=== PATIENT | female | born 1985 | race African-American/Black ===

== ENCOUNTER 2017-07-19 23:18 | Emergency (ER) | payer OTHER ==
[2017-07-19 23:46] LABS: URINE HCG POC HCG NEGATIVE (Negative)
[2017-07-20 00:23] LABS: BILIRUBIN,URINE SMALL (NEG); CLARITY,URINE CLOUDY; COLOR,URINE AMBER; GLUCOSE,URINE NEGATIVE (NEG); NITRITE,URINE NEGATIVE (NEG); PROTEIN,URINE NEGATIVE (NEG-TRACE)
[2017-07-20 00:32] LABS: BACTERIA,URINE FEW /HPF (0-FEW); RBC,URINE 0 /HPF (0-2); SQUAMOUS EPITHELIAL CELL,UR MOD /LPF; WBC,URINE RARE /HPF (0-4)
[2017-07-20 00:33] LABS: ADD MAN DIFF? NO
[2017-07-20] MEDS: KETOROLAC 15 MG/ML VIAL. IV (00:33)
[2017-07-20 00:37] LABS: BASO # 0.1 x10^3/uL (0.0-0.2); BASO % 1 % (0-3); EOS # 0.1 x10^3/uL (0.0-0.7); EOS % 2 % (0-3); HEMATOCRIT 36.3 % (36.0-47.0); HEMOGLOBIN 12.4 g/dL (12.0-15.5); LYMPH # 3.2 x10^3/uL (1.0-4.8); LYMPH % 40 % (24-48); MEAN CORPUSCULAR HEMOGLOBIN 31 pg (25-35); MEAN CORPUSCULAR HGB CONC 34 g/dL (31-37); MEAN CORPUSCULAR VOLUME 90 fL (79-100); MONO # 0.5 x10^3/uL (0.0-1.1); MONO % 7 % (0-9); NEUT # 4.1 x10^3uL (1.8-7.7); NEUT % 51 % (31-73); PLATELET COUNT 365 x10^3/uL (140-400); RED BLOOD COUNT 4.03 x10^6/uL (3.50-5.40); RED CELL DISTRIBUTION WIDTH 13.5 % (11.5-14.5)
[2017-07-20 00:46] LABS: ANION GAP 10 (6-14); BLOOD UREA NITROGEN 9 mg/dL (7-20); BUN/CREATININE RATIO 13 (6-20); CALCIUM 8.5 mg/dL (8.5-10.1); CARBON DIOXIDE 26 mmol/L (21-32); CHLORIDE 104 mmol/L (98-107); CREATININE 0.7 mg/dL (0.6-1.0); GFR 118.1; GLUCOSE 93 mg/dL (70-99); POTASSIUM 3.4 mmol/L (3.5-5.1); SODIUM 140 mmol/L (136-145)
[2017-07-20 00:52] LABS: ALBUMIN 3.5 g/dL (3.4-5.0); ALK PHOS 50 U/L (46-116); ALT (SGPT) 18 U/L (14-59); AST (SGOT) 15 U/L (15-37); LIPASE 72 U/L (73-393); TOTAL BILIRUBIN 0.4 mg/dL (0.2-1.0); TOTAL PROTEIN 7.1 g/dL (6.4-8.2)
== END 2017-07-20 02:37 | disposition home or self-care (01) ==
LOC: ER 07-20 02:37
DX: R10.9 Unspecified abdominal pain (principal); M54.89 Other dorsalgia; N32.89 Other specified disorders of bladder
CPT/HCPCS: 36415; 74176; 80053; 81001; 81025; 83690; 85025; 96374; 99285-25; J1885

== ENCOUNTER 2019-06-24 14:12 | Emergency (ER) | payer SELFPAY ==
[~2019-06-24] VITALS: Ht 162.6 cm; Wt 60.5 kg
[~2019-06-24 14:12] MED LIST: CIPR500T94 PO; HYDR-3164 PO; ONDA4TAB7 PO
[2019-06-24 14:36] VITALS: BP 130/88
[2019-06-24 14:58] LABS: BARBITURATES NEG (NEG); BENZODIAZEPINES NEG (NEG); CANNABINOIDS POS (NEG); COCAINE NEG (NEG); METHADONE NEG (NEG); OPIATES NEG (NEG); PHENCYCLIDINE NEG (NEG)
[2019-06-24 15:02] LABS: AMPHETAMINE/METHAMPHETAMINE NEG (NEG)
[2019-06-24] MEDS ORDERED: HYDROcodone/APAP 5/325MG 1 TAB TABLET PO ONE (15:15)
[2019-06-24 15:18] LABS: BILIRUBIN,URINE NEGATIVE (NEG); CLARITY,URINE TURBID; COLOR,URINE YELLOW; NITRITE,URINE NEGATIVE (NEG); PROTEIN,URINE NEGATIVE (NEG-TRACE)
[2019-06-24 15:19] LABS: AMORPHOUS SEDIMENT,UR PRESENT /HPF; BACTERIA,URINE FEW /HPF (0-FEW); RBC,URINE 0 /HPF (0-2); SQUAMOUS EPITHELIAL CELL,UR MOD /LPF; TRICHOMONAS,URINE PRESENT
--- NOTE | 2019-06-24 15:38 | RAD ---
EXAM: Transabdominal and transvaginal pelvic sonogram. HISTORY: Pain. TECHNIQUE: Transabdominal and transvaginal sonographic imaging of the pelvis was performed. COMPARISON: CT dated 07/20/2017. FINDINGS: The uterus measures 7.3 x 4.8 x 4.0 cm. The endometrial stripe measures 5.6 mm in thickness. The right ovary measures 3.7 x 2.2 x 1.9 cm. The left ovary measures 4.8 x 2.8 x 2.7 cm and contains a complex cyst or endometrioma without internal blood flow measuring 4.3 cm in maximum dimension. There is no pelvic free fluid. There is normal blood flow within both ovaries. IMPRESSION: 1. 4.3 cm complex left ovarian cyst or endometrioma. There is normal blood flow within both ovaries. 2. Unremarkable uterus and endometrial stripe. Electronically signed by: Adore Del Real MD (06/24/2019 3:35 PM) [facility]
[2019-06-24 15:48] LABS: BASO # 0.1 x10^3/uL (0.0-0.2); BASO % 1 % (0-3); EOS # 0.1 x10^3/uL (0.0-0.7); EOS % 1 % (0-3); HEMATOCRIT 39.8 % (36.0-47.0); HEMOGLOBIN 13.2 g/dL (12.0-15.5); LYMPH # 3.7 x10^3/uL (1.0-4.8); LYMPH % 32 % (24-48); MEAN CORPUSCULAR HEMOGLOBIN 29 pg (25-35); MEAN CORPUSCULAR HGB CONC 33 g/dL (31-37); MEAN CORPUSCULAR VOLUME 88 fL (79-100); MONO # 0.8 x10^3/uL (0.0-1.1); MONO % 7 % (0-9); NEUT % 60 % (31-73); PLATELET COUNT 470 x10^3/uL (140-400); RED BLOOD COUNT 4.54 x10^6/uL (3.50-5.40); RED CELL DISTRIBUTION WIDTH 14.1 % (11.5-14.5); WHITE BLOOD COUNT 11.8 x10^3/uL (4.0-11.0)
[2019-06-24 16:00] LABS: CALCIUM 9.3 mg/dL (8.5-10.1); CREATININE 0.8 mg/dL (0.6-1.0); POTASSIUM 3.5 mmol/L (3.5-5.1)
[2019-06-24 16:06] LABS: ALBUMIN 3.5 g/dL (3.4-5.0); ALBUMIN/GLOBULIN RATIO 0.8 (1.0-1.7); TOTAL BILIRUBIN 0.3 mg/dL (0.2-1.0); TOTAL PROTEIN 8.1 g/dL (6.4-8.2)
[2019-06-24] MEDS ORDERED: NAPROXEN 500 MG TABLET PO STA (16:18)
[2019-06-24] MEDS ORDERED: cefTRIAXone IM 250 MG VIAL IM ONE (16:30)
[2019-06-24] MEDS ORDERED: AZITHROMYCIN 250 MG TABLET. PO ONE (16:30)
[2019-06-24] MEDS ORDERED: ONDANSETRON ODT 4 MG TAB.RAPDIS. PO ONE (16:30)
[2019-06-24] MEDS ORDERED: metroNIDAZOLE 500 MG TABLET PO ONE (16:30)
[2019-06-24] MEDS ORDERED: NAPR-514 PO (16:42)
[2019-06-24] MEDS ORDERED: CEPH500T PO (16:42)
[2019-06-24] MEDS ORDERED: HYDR-3164 PO (16:42)
[2019-06-24] MEDS ORDERED: METR500T PO (16:42)
--- NOTE | 2019-06-24 16:43 | PHYS DOC ---
Past Medical History Past Medical History: No Pertinent History Past Surgical History: No Surgical History Smoking Status: Never Smoker Alcohol Use: Occasionally Drug Use: Marijuana Adult General Chief Complaint Chief Complaint: ABDOMINAL PAIN HPI HPI Patient is a 33 year old female with no significant medical history who presents to the ED today complaining of bilateral pelvic pain rated at 10 out of 10 described as sharp and intermittent that has been going on for 1 week. Patient is also complaining of nausea and vomiting due to the pain. Denies any fever. Denies any chance she is . Denies any concerns for STDs. Review of Systems Review of Systems Constitutional: Denies fever or chills [] Eyes: Denies change in visual acuity, redness, or eye pain [] HENT: Denies nasal congestion or sore throat [] Respiratory: Denies cough or shortness of breath [] Cardiovascular: No additional information not addressed in HPI [] GI: Reports abdominal pain with nausea and vomiting, denies bloody stools or diarrhea [] : Denies dysuria or hematuria [] Musculoskeletal: Denies back pain or joint pain [] Integument: Denies rash or skin lesions [] Neurologic: Denies headache, focal weakness or sensory changes [] All other systems were reviewed and found to be within normal limits, except as documented in this note. Current Medications Current Medications Current Medications Medications (Trade) Dose Ordered Sig/Wilma Start Time Stop Time Status Last Admin Dose Admin Acetaminophen/ Hydrocodone Bitart (Lortab 5/325) 1 tab 1X ONCE 06/24/19 15:15 06/24/19 15:16 DC 06/24/19 15:15 1 TAB Azithromycin (Zithromax) 1,000 mg 1X ONCE 06/24/19 16:30 06/24/19 16:31 DC 06/24/19 16:38 1,000 MG Ceftriaxone Sodium (Rocephin Im) 250 mg 1X ONCE 06/24/19 16:30 06/24/19 16:31 DC 06/24/19 16:39 250 MG Metronidazole (Flagyl) 2,000 mg 1X ONCE 06/24/19 16:30 06/24/19 16:31 DC 06/24/19 16:39 2,000 MG Naproxen (Naprosyn) 500 mg 1X STAT 06/24/19 16:18 06/24/19 16:23 DC 06/24/19 16:39 500 MG Ondansetron HCl (Zofran Odt) 4 mg 1X ONCE 06/24/19 16:30 06/24/19 16:31 DC 06/24/19 16:38 4 MG Allergies Allergies Allergies Coded Allergies Type Severity Reaction Last Updated Verified No Known Drug Allergies 10/17/13 No Physical Exam Physical Exam Constitutional: Well developed, well nourished, no acute distress, non-toxic appearance. [] HENT: Normocephalic, atraumatic, bilateral external ears normal, oropharynx moist, no oral exudates, nose normal. [] Eyes: PERRLA, EOMI, conjunctiva normal, no discharge. [] Neck: Normal range of motion, no tenderness, supple, no stridor. [] Cardiovascular:Heart rate regular rhythm, no murmur [] Lungs & Thorax: Bilateral breath sounds clear to auscultation [] Abdomen: Bowel sounds normal, soft, no tenderness, no masses, no pulsatile masses. [] Pelvic exam External pelvic appears normal, cervix is visualized, no CMT, mild left adnexal tenderness, no right adnexal tenderness, mild amount of yellow discharge noted in the vaginal vault. Skin: Warm, dry, no erythema, no rash. [] Back: No tenderness, no CVA tenderness. [] Extremities: No tenderness, no cyanosis, no clubbing, ROM intact, no edema. [] Neurologic: Alert and oriented X 3, normal motor function, normal sensory function, no focal deficits noted. [] Psychologic: Affect normal, judgement normal, mood normal. [] Current Patient Data Vital Signs Vital Signs Date Time Temp Pulse Resp B/P (MAP) Pulse Ox O2 Delivery O2 Flow Rate FiO2 06/24/19 15:15 20 06/24/19 14:36 98.7 101 130/88 (102) 100 Room Air 98.7 Lab Values Laboratory Tests Test 06/24/19 14:26 06/24/19 14:30 06/24/19 14:52 POC Urine HCG, Qualitative Hcg negative (Negative) Urine Collection Type Unknown Urine Color Yellow Urine Clarity Turbid Urine pH 8.0 (<5.0-8.0) Urine Specific [place] 1.015 (1.000-1.030) Urine Protein Negative mg/dL (NEG-TRACE) Urine Glucose (UA) Negative mg/dL (NEG) Urine Ketones (Stick) Negative mg/dL (NEG) Urine Blood Negative (NEG) Urine Nitrite Negative (NEG) Urine Bilirubin Negative (NEG) Urine Urobilinogen Dipstick 1.0 mg/dL (0.2 mg/dL) Urine Leukocyte Esterase Moderate (NEG) Urine RBC 0 /HPF (0-2) Urine WBC 5-10 /HPF (0-4) Urine Squamous Epithelial Cells Mod /LPF Urine Amorphous Sediment Present /HPF Urine Bacteria Few /HPF (0-FEW) Urine Mucus Slight /LPF Urine Trichomonas Present Urine Opiates Screen Neg (NEG) Urine Methadone Screen Neg (NEG) Urine Barbiturates Neg (NEG) Urine Phencyclidine Screen Neg (NEG) Urine Amphetamine/Methamphetamine Neg (NEG) Urine Benzodiazepines Screen Neg (NEG) Urine Cocaine Screen Neg (NEG) Urine Cannabinoids Screen Pos (NEG) Urine Ethyl Alcohol Neg (NEG) White Blood Count 11.8 x10^3/uL (4.0-11.0) H Red Blood Count 4.54 x10^6/uL (3.50-5.40) Hemoglobin 13.2 g/dL (12.0-15.5) Hematocrit 39.8 % (36.0-47.0) Mean Corpuscular Volume 88 fL (79-100) Mean Corpuscular Hemoglobin 29 pg (25-35) Mean Corpuscular Hemoglobin Concent 33 g/dL (31-37) Red Cell Distribution Width 14.1 % (11.5-14.5) Platelet Count 470 x10^3/uL (140-400) H Neutrophils (%) (Auto) 60 % (31-73) Lymphocytes (%) (Auto) 32 % (24-48) Monocytes (%) (Auto) 7 % (0-9) Eosinophils (%) (Auto) 1 % (0-3) Basophils (%) (Auto) 1 % (0-3) Neutrophils # (Auto) 7.0 x10^3/uL (1.8-7.7) Lymphocytes # (Auto) 3.7 x10^3/uL (1.0-4.8) Monocytes # (Auto) 0.8 x10^3/uL (0.0-1.1) Eosinophils # (Auto) 0.1 x10^3/uL (0.0-0.7) Basophils # (Auto) 0.1 x10^3/uL (0.0-0.2) Sodium Level 137 mmol/L (136-145) Potassium Level 3.5 mmol/L (3.5-5.1) Chloride Level 100 mmol/L (98-107) Carbon Dioxide Level 27 mmol/L (21-32) Anion Gap 10 (6-14) Blood Urea Nitrogen 6 mg/dL (7-20) L Creatinine 0.8 mg/dL (0.6-1.0) Estimated GFR (Cockcroft-Gault) 100.0 BUN/Creatinine Ratio 8 (6-20) Glucose Level 96 mg/dL (70-99) Calcium Level 9.3 mg/dL (8.5-10.1) Total Bilirubin 0.3 mg/dL (0.2-1.0) Aspartate Amino Transferase (AST) 14 U/L (15-37) L Alanine Aminotransferase (ALT) 12 U/L (14-59) L Alkaline Phosphatase 73 U/L (46-116) Total Protein 8.1 g/dL (6.4-8.2) Albumin 3.5 g/dL (3.4-5.0) Albumin/Globulin Ratio 0.8 (1.0-1.7) L Lipase 56 U/L (73-393) L Ethyl Alcohol Level < 10 mg/dL (0-10) Laboratory Tests 06/24/19 14:52 Laboratory Tests 06/24/19 14:52 Microbiology 06/24/19 Wet Prep - Final, Complete EKG EKG [] Radiology/Procedures Radiology/Procedures []PROCEDURE: PELVIS W/TV EXAM: Transabdominal and transvaginal pelvic sonogram. HISTORY: Pain. TECHNIQUE: Transabdominal and transvaginal sonographic imaging of the pelvis was performed. COMPARISON: CT dated 07/20/2017. FINDINGS: The uterus measures 7.3 x 4.8 x 4.0 cm. The endometrial stripe measures 5.6 mm in thickness. The right ovary measures 3.7 x 2.2 x 1.9 cm. The left ovary measures 4.8 x 2.8 x 2.7 cm and contains a complex cyst or endometrioma without internal blood flow measuring 4.3 cm in maximum dimension. There is no pelvic free fluid. There is normal blood flow within both ovaries. IMPRESSION: 1. 4.3 cm complex left ovarian cyst or endometrioma. There is normal blood flow within both ovaries. 2. Unremarkable uterus and endometrial stripe. Electronically signed by: Adore Kwok MD (06/24/2019 3:35 PM) [facility] DICTATED and SIGNED BY: ADORE KWOK MD DATE: 06/24/19 1535 Course & Med Decision Making Course & Med Decision Making Pertinent Labs and Imaging studies reviewed. (See chart for details) This is a 33-year-old female patient presenting to the ED today with pelvic pain for 1 week. Negative urine hCG, urine analysis noted for trichomonas and UTI. Wet prep noted for bacterial vaginosis. Pelvic ultrasound noted for 4.3 cm complex left ovarian cyst or endometrioma with normal blood flow within both ovaries. Patient was treated for STDs in the ED and provided education. Discharge to home with instructions to follow-up with an [employer]PERATOR. Dragon Disclaimer Dragon Disclaimer This electronic medical record was generated, in whole or in part, using a voice recognition dictation system. Departure Departure Impression: Primary Impression: Trichomonal vaginitis Additional Impressions: UTI (urinary tract infection) Hemorrhagic cyst of left ovary Bacterial vaginosis Disposition: HOME, SELF-CARE Condition: STABLE Referrals: WINETR CHAMBERS (PCP) KRYSTA DAVILA MD follow up in 1 week Patient Instructions: Ovarian Cyst, Trichomoniasis-Brief Additional Instructions: You have an ovarian cyst on your left ovary, please follow-up with the provided PLATE FURNACE OPERATOR or your PLATE FURNACE OPERATOR in 1 week. You also have urinary tract infection and trichomonas, trichomonas is a sexually transmitted disease please contact all your partners and let them know you tested positive for trichomonas and ask them to seek treatment too. Take the prescribed antibiotics until completed. Get a heating pad and try to apply on your pelvic region. This will help alleviate the pain. Scripts Naproxen (NAPROXEN) 500 Mg Tablet 1 TAB PO BID for pain for 30 Days, #60 TAB 0 Refills Prov: PHILLYABIANKA PT SITTER 06/24/19 Hydrocodone/Apap 5-325 (NORCO 5-325 TABLET) 1 Each Tablet 1 TAB PO Q6HRS, #16 TAB Prov: MUTUNGABIANKA PT SITTER 06/24/19 Cephalexin (CEPHALEXIN) 500 Mg Tablet 1 TAB PO BID, #14 TAB Prov: BIANKA MCCOLLUM APRN 06/24/19 Metronidazole (FLAGYL) 500 Mg Tablet 1 TAB PO BID, #10 TAB Prov: BIANKA MCCOLLUM APRN 06/24/19 Problem Qualifiers Additional Impressions: UTI (urinary tract infection) Urinary tract infection type: site unspecified Hematuria presence: without hematuria Qualified Codes: N39.0 - Urinary tract infection, site not specified BIANKA MCCOLLUM APRN Jun 24, 2019 16:43
[2019-06-26 18:09] LABS: GC PROBE Positive (Negative)
== END 2019-06-24 17:00 | disposition home or self-care (01) ==
LOC: ER 14:12
DX: A59.01 Trichomonal vulvovaginitis (principal); N83.202 Unspecified ovarian cyst, left side; N76.0 Acute vaginitis; N39.0 Urinary tract infection, site not specified
CPT/HCPCS: 76830; 76856; 80053; 80307; 81001; 81025; 83690; 85025; 87491; 87591; 96372; 99285; G0480; J0696; Q0111; Q0162; 36415